=== PATIENT | female | born 1985 | race Caucasian/White ===

== ENCOUNTER 2016-06-29 03:36 | Emergency (ER) | payer MEDICAID | END 2016-06-29 05:19 | disposition home or self-care (01) | LOC: ER 03:36 | DX: R51 Headache (principal); R11.0 Nausea; O26.891 Other specified pregnancy related conditions, first trimester; Z79.899 Other long term (current) drug therapy; F41.1 Generalized anxiety disorder | CPT/HCPCS: 36415; 80053; 81001; 84702; 85025; 87088; 96361; 96374 ==